=== PATIENT | male | born 1935 | race Caucasian/White ===

== ENCOUNTER 2020-09-07 14:52 | Inpatient (IN) | payer OTHER, SELFPAY ==
[2020-09-07] VITALS (40 sets, daily range): BP systolic 91–110; BP diastolic 41–82; PULSE 71–119; RESP 14–34; TEMP 36.6–36.8; O2SAT 80–100
--- NOTE | 2020-09-07 14:45 | RT.EKG_ITS ---
APPROVED REPORT Exam: Resting ECG Patient Location: E HR:80 bpm ECG Measurements Heart Rate 80 AXIS VA [id number] P [id number] QRSd 162 QRS -76 QT 487 T 92 QTc 567 Conclusion Afib/flut and V-paced complexes...other complexes, A-rate>240 I have reviewed and interpreted ECG and agree with software generated interpretation.
--- NOTE | 2020-09-07 15:03 | ED.GENADUL_ITS ---
Discharge Plan Disposition Patient Disposition: [facility] INPATIENT Condition: Stable Discharge Details Clinical Impression: Pneumonia, Hypotension, Dehydration, Acute CHF, Acute kidney injury superimpos ed on chronic kidney disease, Altered mental status Admit Date/Time: 09/07/20 18:26 Admit Provider: Bimal Sheriff Attending Provider: Bimal Sheriff Primary Care Provider: Ronaldo Melgar ED Provider: Beti Tiwari Discharge Data Discharge Date/Time-TO BE ENTERED AT DEPARTURE: 09/07/20 19:55 Medical Decision Making 1520 -- 84-year-old male with a history of AAA, CHF, CKD, CVA, diabetes, hypertension, hyperlipidemia, paroxysmal atrial fibrillation on Coumadin presents for confusion, hypoxia, hypotension and [facility] Patient awake and alert and oriented x3 on arrival. Blood pressure 94/68. Oxygen saturation 100% on room air. Patient mainly is demanding food. He has diminished breath sounds throughout. He has a stage II sacral ulcer without evidence of cellulitis. He is moving all extremities without focal deficits. Differential diagnosis includes acute CVA, ACS, pneumonia, UTI, electrolyte abnormality, arrhythmia. Will place an IV, check screening labs, urinalysis, CT head and chest and reassess. 173 -- Labs and imaging reviewed. White blood cell count normal. Hemoglobin 9.5. Lactate 2. INR 2.5. Creatinine 2.99. BNP 13710. Urinalysis negative. CT head and cervical spine negative. CT chest notes questionable patchy groundglass opacities of the lungs, edema, inflammation or infection not excluded. Pelvis x-ray negative. Case discussed with patient's daughter over the phone who states that she would prefer if patient be transferred [facility] the [facility] if needed for admission. Case discussed with the [facility] - patient's creatinine was 2.51 and hemoglobin was 9 last week. They will call back once confirming their bed availability. 190 -- Case discussed again with the [facility] and there is no bed availability. States that patient could be transferred to the [facility] tomorrow if bed becomes available. Considering patient's age and history with report of altered mental status and questionable pneumonia, will admit for observation and IV antibiotics. Discussed with patient's daughter over the phone and she is agreeable with plan. Case discussed with hospitalist who accepts patient for admission. Medical Records Medical records reviewed: Yes I reviewed the patient's medical records. Imaging Data Radiologic Study: Radiologist's impression: XR Pelvis Exam date and time: 09/07/2020 4:42 PM Age: 84 years old Clinical indication: Other: S/P possible fall, R/O acute fracture TECHNIQUE: Imaging protocol: XR pelvis. Views: 1 or 2 view. COMPARISON: No relevant prior studies available. FINDINGS: Bones/joints: The area of the pubic symphysis is obscured by oral contrast in the rectum. Degenerative changes in the lower lumbar spine. No definite fracture or dislocation. Soft tissues: Unremarkable. Gastrointestinal tract: Oral contrast in the colon. IMPRESSION: No definite fracture or dislocation. CT Chest Without Contrast Exam date and time: 09/07/2020 4:28 PM Age: 84 years old Clinical indication: Other: Shortness of breath, hypoxia, R/O chf/pneumonia TECHNIQUE: Imaging protocol: Computed tomography of the chest without contrast. COMPARISON: No relevant prior studies available. FINDINGS: Tubes, catheters and devices: Pacemaker leads in the right heart. Lungs: Patchy ground-glass mottled appearance of the lungs that is subtle. Mild edema or inflammation or infection is not excluded. Pleural space: Small right pleural effusion. Heart: Cardiomegaly. Aorta: Unremarkable. No aortic aneurysm. Lymph nodes: Unremarkable. No enlarged lymph nodes. Intraperitoneal space: Mild perisplenic ascites. Bones/joints: Sternotomy. Degenerative changes in the spine. Old right 11th rib fracture, healed. Soft tissues: Unremarkable. Other findings: Mild atherosclerosis. IMPRESSION: Cardiomegaly. Pacemaker leads in the right heart. Mild atherosclerosis. Mild perisplenic ascites. Small right pleural effusion. Patchy ground-glass mottled appearance of the lungs that is subtle. Mild edema or inflammation or infection is not excluded. CT Head Without Contrast Exam date and time: 09/07/2020 4:16 PM Age: 84 years old Clinical indication: Other: S/P fall, R/O acute intracraninal injury TECHNIQUE: Imaging protocol: Computed tomography of the head without contrast. COMPARISON: No relevant prior studies available. FINDINGS: Brain: There is ventricular, cortical sulcal prominence consistent with central, cortical atrophy. Remote ischemic changes seen posteriorly in both cerebral hemispheres , on the right involving the posterior right temporal lobe at the temporal occipital junction and on the left involving the left occipital lobe/left temporal occipital junction as well. There is low attenuation involving the periventricular, subcortical white matter likely representing small vessel ischemic change/microangiopathy. Remote left cerebellar infarcts are also identified. There is no evidence of acute hemorrhage, mass or shift. There is no definite acute cortical or major vascular territory infarct the identified. Cerebral ventricles: Ventricular prominence likely is related to central atrophy.. Bones/joints: There is no acute bony abnormality Paranasal sinuses: There is sinus mucoperiosteal thickening particularly involving the left ethmoid air cells, frontal sinuses at the frontoethmoidal recesses. There is no significant sinus opacification, fluid level nor intra sinus hemorrhage Mastoid air cells: There is no significant mastoid or middle ear opacification Orbital cavity: Patient has had prior lens replacement. No significant intraorbital abnormality is identified Vasculature: There is intracranial vascular calcification but no hyperdense thrombus Soft tissues: Unremarkable. IMPRESSION: Findings consistent with central, cortical atrophy. Remote ischemic changes are seen in both cerebral hemispheres, left cerebellum but no acute findings are identified. CT Cervical Spine Without Contrast Exam date and time: 09/07/2020 4:16 PM Age: 84 years old Clinical indication: Other: S/P fall, R/O acute intracraninal injury TECHNIQUE: Imaging protocol: Computed tomography images of the cervical spine without contrast. COMPARISON: No relevant prior studies available. FINDINGS: Bones/joints: There is straightening, reversal of the cervical lordosis which may be positional or due to spasm. There is no evidence of an acute fracture in the cervical spine. There is no decrease of vertebral body height. There is no acute or destructive bony abnormality Discs/Spinal canal/Neural foramina: There is multilevel disc space narrowing in the cervical spine. This is present at multiple levels but appears most prominent at C6-C7. There are disc osteophyte complexes, spondylitic changes of the endplates, uncovertebral and facet arthropathy. There is narrowing of the canal/stenosis at the level of the disc spaces most prominent at C6-C7. Degenerative changes also lead to foraminal narrowing/stenosis also most prominent at C6-C7. Degenerative changes are also seen at the C1-C2 articulation. Soft tissues: There is no evidence of a discrete soft tissue mass in the neck Lungs: No significant abnormality is identified at the visualized lung apices Other findings: The the the the the examination is mildly degraded by motion. IMPRESSION: Cervical spondylosis, disc disease. No evidence of an acute fracture in the cervical spine. ECG Data Attestation: I personally reviewed and interpreted this ECG (s) as follows: Interpretation: Rate of 80, atrial paced. No acute ST findings. KS 214. QRS 162. QTc 567. HPI General Mode of arrival: EMS . Date/Time Provider Initiated Documentation: 09/07/20 15:00 . Limitations to Documentation: altered mental status and physical limitation . Information obtained by: patient, RN/MD and EMS . HPI Narrative: Patient is an 84-year-old male with a history of AAA, CHF, CKD, CVA, diabetes, hypertension, hyperlipidemia, paroxysmal atrial fibrillation on Coumadin [facility] for hypoxia into the 80s on room air, questionable fluid in lungs, and confusion today. Per [facility], patient has been there for the past 2 days after discharge [facility] for acute CHF exacerbation. Case discussed with patient's daughter over the phone who states that patient developed shortness of breath and was found to have acute CHF [facility] [place]. She states he has not chronically on oxygen at home. Related Data Home Medications Medication Instructions Recorded Confirmed acetaminophen 325 mg PO TID PRN 09/07/20 09/07/20 aspirin 81 mg PO DAILY 09/07/20 09/07/20 benzonatate 100 mg PO BID PRN 09/07/20 09/07/20 bisacodyl [Dulcolax (bisacodyl)] 10 mg KS DAILY PRN 09/07/20 09/07/20 bumetanide 2 mg PO BID 09/07/20 09/07/20 diclofenac sodium [Diclo Gel] 4 g TOPICAL QID PRN 09/07/20 09/07/20 docusate sodium [Colace] 100 mg PO DAILY 09/07/20 09/07/20 febuxostat 80 mg PO DAILY 09/07/20 09/07/20 gabapentin 300 mg PO DAILY 09/07/20 09/07/20 lactase 3,000 unit PO TID 09/07/20 09/07/20 metoprolol tartrate 50 mg PO DAILY 09/07/20 09/07/20 omega-3 fatty acids-vitamin E 1 cap PO BID 09/07/20 09/07/20 [Fish Oil] omeprazole 20 mg PO DAILY 09/07/20 09/07/20 pravastatin 20 mg PO QHS 09/07/20 09/07/20 tamsulosin 0.8 mg PO QHS 09/07/20 09/07/20 trazodone 50 mg PO QHS 09/07/20 09/07/20 warfarin [Coumadin] 1 mg PO DIRECTED 09/07/20 09/07/20 warfarin [Coumadin] 2 mg PO DIRECTED 09/07/20 09/07/20 Allergies Allergy/AdvReac Type Severity Reaction Status Date / Time allopurinol Allergy Unverified 09/07/20 15:31 lisinopril Allergy Unverified 09/07/20 15:31 Review of Systems All systems reviewed & are unremarkable except as noted in HPI and below Constitutional Constitutional: Reports as per HPI, Denies chills and Denies fever(s) Eyes Eyes: Denies blurry vision ENT Ears, Nose, Mouth, and Throat: Denies dizziness, Denies sore throat and Denies t hroat swelling Cardiovascular Cardiovascular: Denies chest pain and Denies dyspnea Respiratory Respiratory: Denies cough and Denies dyspnea Gastrointestinal Gastrointestinal: Denies abdominal pain, Denies diarrhea and Denies vomiting Genitourinary Genitourinary: Denies hematuria and Denies dysuria Musculoskeletal Musculoskeletal: Denies back pain and Denies numbness Integumentary/Breasts Skin/Breast: Denies lesions and Denies rash Neurologic Neurologic: Denies dizziness, Denies localized weakness and Denies numbness Allergic/Immunologic Allergic/Immunologic: Denies throat swelling [facility] Medical History (Updated 09/08/20 @ 05:38 by Bimal Sheriff MD) AAA (abdominal aortic aneurysm) without rupture CHF (congestive heart failure) Chronic kidney disease CVA (cerebral vascular accident) Diabetes Dysphagia Gout HTN (hypertension) Hx of hyperlipidemia Paroxysmal atrial fibrillation Peripheral neuropathy Social History Smoking/Tobacco Use Status: Unknown Smoking risk assessment performed?: Yes Details: Unable to assess patient confused, current resident of [facility]. Additional Social history: Unable to assess patient confused, current resident of [facility]. Exam Const General: cooperative and other (cooperative but frequently asking for food) Orientation: alert, awake and oriented x3 HENMT Head: normal to inspection Face and sinus: normal facial exam Eyes General: appearance normal, both eyes and all related structures Pupils: PERRL EOM: EOM intact bilaterally Neck Neck: normal visual inspection and No submandibular swelling Lymphatic: no lymphadenopathy noted Chest Chest: normal inspection of the chest and no tenderness Resp Effort & Inspection: normal respiratory effort and able to speak in complete sentences Auscultation: diminished lung sounds bilaterally throughout Cardio Rate: regular rate Rhythm: regular rhythm GI Inspection: normal to inspection Palpation: soft, not firm, not rigid and nontender Auscultation: normal bowel sounds Back/Spine/Pelvis Thoracic/Lumbar Spine: thoracic and lumbar spine normal to inspection Back/spine/pelvis image: 1. 1x1cm stage II Skin General skin exam: no rashes or lesions noted Neuro General: patient alert, patient awake and patient oriented x3 Cognition: normal cognition Speech: speech normal Motor: muscle tone normal throughout Sensory Exam: no sensory deficits noted Extrem General: normal to inspection, full ROM, capillary refill normal, no calf tenderness bilaterally and edema Laterality: bilateral (1+ pitting) Psych Appearance: grossly normal Mental Status: mental status grossly normal Speech and Movement: speech and movement normal Affect: normal affect
[2020-09-07 15:37] LABS: Abs Immature Grans 0.03 10^3/uL (0.0-0.06); Absolute Basophil Count 0.02 10^3/uL (0.0-0.2); Absolute Eosinophil Count 0.01 10^3/uL (0.0-0.7); Absolute Lymphocyte Count 0.72 10^3/uL (1.2-3.4); Absolute Monocyte Count 0.69 10^3/uL (0.1-0.8); Absolute Neutrophil Count 4.08 10^3/uL (1.2-6.7); Basophils % 0.4; Eosinophils % 0.2; HCT 32.5 % (40.0-50.0); HGB 9.5 g/dL (13.5-17.5); Immature Grans % 0.5; MCH 27.4 pg (27.0-33.0); MCHC 29.2 % (32.0-36.0); MCV 93.7 fL (80-95); MPV 11.3 fL (8.0-11.0); Monocytes % 12.4; Neutrophils % 73.5; Nucleated RBC 0 %; Platelet Count 119 10^3/uL (130-400); RBC 3.47 10^6/uL (4.36-5.78); RDW 20.3 % (11.8-14.1); RDW-SD 69.1 fL; WBC 5.55 10^3/uL (4.4-10.8)
[2020-09-07 15:45] LABS: Bilirubin Negative (Negative); Blood Negative (Negative); Clarity Clear (Clear); Glucose Negative (Negative); Ketones Negative (Negative); Leukocyte Esterase Negative (Negative); Nitrite Negative (Negative)
[2020-09-07 15:51] LABS: INR 2.5 (0.9-1.1); PTT Activated 38.4 sec (21.0-27.5)
[2020-09-07 15:52] LABS: Prothrombin Time 24.7 sec (9.3-11.0)
[2020-09-07 15:55] LABS: Anisocytosis 2+; Diff Comment RBC Morph Reviewed
[2020-09-07 15:56] LABS: ALT 17 U/L (16-63); AST 32 U/L (15-37); Albumin 3.2 g/dL (3.4-5.0); Alkaline Phosphatase 85 U/L (46-116); Anion Gap 4.2 mmol/L (3-11); BUN 64 mg/dL (7-18); CO2 38.8 mmol/L (21.0-32.0); CREATININE 2.99 mg/dL (0.70-1.30); Calcium 8.9 mg/dL (8.5-10.1); Chloride 101 mmol/L (98-107); Estimated GFR 20.21 (mL/min/1.73m2); Glucose 114 mg/dL (74-106); Magnesium 2.1 mg/dL (1.8-2.4); Sodium 144 mmol/L (136-145); Total Protein 7.6 g/dL (6.4-8.2); Troponin I 0.05 ng/mL (<0.06)
[2020-09-07 15:58] LABS: Bilirubin, Total 1.8 mg/dL (0.2-1.0)
[2020-09-07 16:00] LABS: NT-proBNP 18968 pg/mL (<300)
--- NOTE | 2020-09-07 16:00 | DI.CT_ITS ---
EXAM: CT HEAD CERVICAL SPINE WO COMPARISON: No exams were available for comparison FINDINGS: CT examination of the cervical spine was performed without contrast administration. There is no evidence of acute cervical spine fracture or dislocation. There are marked degenerative changes of the cervical spine with prominent hypertrophic changes of th e facet joints and endplates, there is disc space narrowing particularly at C6-7. Tracheolaryngeal structures appear intact. No cervical mass or adenopathy. Noncontrast cranial CT was performed. There is marked generalized cerebral atrophy. There are patchy areas of decreased attenuation in per iventricular white matter consistent with microvascular ischemic changes. There are apparent old inf arcts of left cerebellar hemisphere and right and left occipital lobes. No evidence of acute intracranial hemorrhage, mass effect, or midline shift. No calvarial fracture. The orbital and temporal bone structures appear intact. IMPRESSION: No evidence of acute cervical spine injury. No evidence of acute intracranial injury. RADIATION DOSE DELIVERED: 1,512.1mGy.cm Total DLP 1,512.1mGy.cm Total DLP DATA REPOSITORY: All CT scans at this facility are submitted to the National Radiology Data Registry (NRDR) Dose Index Registry (DIR) with the [employer] ([employer]). RADIATION OPTIMIZATION: All CT scans at this facility use at least one of these dose optimization te chniques: automated exposure control; mA and/or kV adjustment per patient size (includes targeted exa ms where dose is matched to clinical indication); or iterative reconstruction.
--- NOTE | 2020-09-07 16:00 | DI.CT_ITS ---
EXAM: CT CHEST WO CLINICAL HISTORY: shortness of breath, hypoxia, r/o chf/pneumonia TECHNIQUE: COMPARISON: No exams were available for comparison FINDINGS: CT examination of the chest was performed without contrast administration. Images obtained through the upper abdomen show minimal fluid attenuation adjacent to the spleen which is nonspecific. Visualized liver appears intact. The heart is enlarged. There is a transvenous cardiac pacemaker. There is an aortic valve prosthesi s. No gross mediastinal or hilar adenopathy. There is a small right pleural effusion. Motion obscures pulmonary detail to some degree. There is a question of faint bilateral perihilar in filtrates, ground-glass, possible mild CHF, infectious process not excluded. There is a 5 millimeter in diameter right middle lobe pulmonary nodule, follow-up chest CT recommende d in 6 months. IMPRESSION: Cardiomegaly, question mild CHF, mild ground-glass infectious process not excluded. CT follow-up recommended for right middle lobe 5 millimeter pulmonary nodule. RADIATION DOSE DELIVERED: 646.31mGy.cm Total DLP
--- NOTE | 2020-09-07 16:11 | DI.RAD_ITS ---
EXAM: XR PELVIS AP CLINICAL HISTORY: s/p possible fall, r/o acute fracture TECHNIQUE: COMPARISON: No exams were available for comparison FINDINGS: Two views were obtained. A portions of the pelvis are obscured by barium in the colon. The radiogra phic technique does not adequately demonstrate the proximal femurs. No definite fracture seen. IMPRESSION: No definite fracture identified but the films are suboptimal for evaluating for fracture. If there is a high clinical suspicion of fracture additional radiographs or CT would be recommended. RADIATION DOSE DELIVERED: Total DLP
--- NOTE | 2020-09-07 16:57 | DI.VRAD_ITS ---
PROCEDURE INFORMATION: Exam: XR Pelvis Exam date and time: 09/07/2020 4:42 PM Age: 84 years old Clinical indication: Other: S/P possible fall, R/O acute fracture TECHNIQUE: Imaging protocol: XR pelvis. Views: 1 or 2 view. COMPARISON: No relevant prior studies available. FINDINGS: Bones/joints: The area of the pubic symphysis is obscured by oral contrast in the rectum. Degenerative changes in the lower lumbar spine. No definite fracture or dislocation. Soft tissues: Unremarkable. Gastrointestinal tract: Oral contrast in the colon. IMPRESSION: No definite fracture or dislocation. Dictated and Authenticated by: Cong Giraldo MD. Ordering:MARY Bang MD
--- NOTE | 2020-09-07 17:03 | DI.VRAD_ITS ---
PROCEDURE INFORMATION: Exam: CT Chest Without Contrast Exam date and time: 09/07/2020 4:28 PM Age: 84 years old Clinical indication: Other: Shortness of breath, hypoxia, R/O chf/pneumonia TECHNIQUE: Imaging protocol: Computed tomography of the chest without contrast. COMPARISON: No relevant prior studies available. FINDINGS: Tubes, catheters and devices: Pacemaker leads in the right heart. Lungs: Patchy ground-glass mottled appearance of the lungs that is subtle. Mild edema or inflammation or infection is not excluded. Pleural space: Small right pleural effusion. Heart: Cardiomegaly. Aorta: Unremarkable. No aortic aneurysm. Lymph nodes: Unremarkable. No enlarged lymph nodes. Intraperitoneal space: Mild perisplenic ascites. Bones/joints: Sternotomy. Degenerative changes in the spine. Old right 11th rib fracture, healed. Soft tissues: Unremarkable. Other findings: Mild atherosclerosis. IMPRESSION: Cardiomegaly. Pacemaker leads in the right heart. Mild atherosclerosis. Mild perisplenic ascites. Small right pleural effusion. Patchy ground-glass mottled appearance of the lungs that is subtle. Mild edema or inflammation or infection is not excluded. Dictated and Authenticated by: Cong Giraldo MD. Ordering:MARY Bang MD
--- NOTE | 2020-09-07 17:05 | DI.VRAD_ITS ---
PROCEDURE INFORMATION: Exam: CT Head Without Contrast Exam date and time: 09/07/2020 4:16 PM Age: 84 years old Clinical indication: Other: S/P fall, R/O acute intracraninal injury TECHNIQUE: Imaging protocol: Computed tomography of the head without contrast. COMPARISON: No relevant prior studies available. FINDINGS: Brain: There is ventricular, cortical sulcal prominence consistent with central, cortical atrophy. Remote ischemic changes seen posteriorly in both cerebral hemispheres , on the right involving the posterior right temporal lobe at the temporal occipital junction and on the left involving the left occipital lobe/left temporal occipital junction as well. There is low attenuation involving the periventricular, subcortical white matter likely representing small vessel ischemic change/microangiopathy. Remote left cerebellar infarcts are also identified. There is no evidence of acute hemorrhage, mass or shift. There is no definite acute cortical or major vascular territory infarct the identified. Cerebral ventricles: Ventricular prominence likely is related to central atrophy.. Bones/joints: There is no acute bony abnormality Paranasal sinuses: There is sinus mucoperiosteal thickening particularly involving the left ethmoid air cells, frontal sinuses at the frontoethmoidal recesses. There is no significant sinus opacification, fluid level nor intra sinus hemorrhage Mastoid air cells: There is no significant mastoid or middle ear opacification Orbital cavity: Patient has had prior lens replacement. No significant intraorbital abnormality is identified Vasculature: There is intracranial vascular calcification but no hyperdense thrombus Soft tissues: Unremarkable. IMPRESSION: Findings consistent with central, cortical atrophy. Remote ischemic changes are seen in both cerebral hemispheres, left cerebellum but no acute findings are identified. PROCEDURE INFORMATION: Exam: CT Cervical Spine Without Contrast Exam date and time: 09/07/2020 4:16 PM Age: 84 years old Clinical indication: Other: S/P fall, R/O acute intracraninal injury TECHNIQUE: Imaging protocol: Computed tomography images of the cervical spine without contrast. COMPARISON: No relevant prior studies available. FINDINGS: Bones/joints: There is straightening, reversal of the cervical lordosis which may be positional or due to spasm. There is no evidence of an acute fracture in the cervical spine. There is no decrease of vertebral body height. There is no acute or destructive bony abnormality Discs/Spinal canal/Neural foramina: There is multilevel disc space narrowing in the cervical spine. This is present at multiple levels but appears most prominent at C6-C7. There are disc osteophyte complexes, spondylitic changes of the endplates, uncovertebral and facet arthropathy. There is narrowing of the canal/stenosis at the level of the disc spaces most prominent at C6-C7. Degenerative changes also lead to foraminal narrowing/stenosis also most prominent at C6-C7. Degenerative changes are also seen at the C1-C2 articulation. Soft tissues: There is no evidence of a discrete soft tissue mass in the neck Lungs: No significant abnormality is identified at the visualized lung apices Other findings: The the the the the examination is mildly degraded by motion. IMPRESSION: Cervical spondylosis, disc disease. No evidence of an acute fracture in the cervical spine. Dictated and Authenticated by: Kavita Marquez MD. Ordering:MARY Bang MD
[2020-09-07] MEDS: Normal Saline 500 ML IV (19:24)
[2020-09-07] MEDS: PIPERACILLIN/TAZO 3.375 GM in Normal Saline 50 ML IVPB (19:28)
[2020-09-07 20:33] LABS: Procalcitonin 0.2 ng/mL
[2020-09-07] MEDS: Pravastatin 20 MG TAB PO (23:16)
[2020-09-07] MEDS: Normal Saline Flush 10 ML SYR IVP (23:16)
[2020-09-07] MEDS: traZODone 50 MG TAB PO (23:16)
[2020-09-07] MEDS: Tamsulosin 0.4 MG CAPCR 0.8 MG PO (23:16)
[2020-09-07] MEDS: VANCOMYCIN 1,250 MG in Normal Saline 250 ML 166.667 MG IVPB (23:17)
[2020-09-08] MEDS: PIPERACILLIN/TAZO 3.375 GM in Normal Saline 50 ML IVPB ×2 (01:44→15:17)
[2020-09-08 02:03] VITALS: BP 106/73; PULSE 80; RESP 17; TEMP 36.8; O2SAT 99
--- NOTE | 2020-09-08 05:26 | HPE_ITS ---
Date of service: 09/08/20 Time of Service: 05:26 Assessment and Plan Assessment and plan (1) Altered mental status: Status: Acute Assessment and plan: Appeared to have resolved upon presentation to ED Likely related to transient hypoxia. CT head w/o acute findings to explain any confusion Monitor Qualifiers: Altered mental status type: transient alteration of awareness Qualified Code(s): R40.4 - Transient alteration of awareness (2) Acute kidney injury superimposed on chronic kidney disease: Status: Acute Assessment and plan: Cr elevated above his baseline. Given his acute on chronic CHF, consider lasix drip. Avoid nephrotoxic agents. Monitor (3) Acute CHF: Status: Acute Assessment and plan: No hypoxia since admission. CT chest with ground glass opacities; edema. Questionably infectious, however WBC count and procal are both normal. Stopped antibiotics. + pitting pedal edema Recently [facility]'d [facility]. Consider lasix drip. Low Na diet. Fluid restriction of 1500 ml; watching renal function closely. Qualifiers: Heart failure type: systolic Qualified Code(s): I50.21 - Acute systolic (congestive) heart failure (4) Hypotension: Status: Acute Assessment and plan: SBP in the 90's to low 100's Unknown baseline BP; this may be his normal. He was administered 500ml IV NS in the ED. Stable (5) Hypoxemia: Status: Acute Assessment and plan: No dxd underlying pulmonary disease. No chronic resp failure. Now on 1L O2 per NC with saturation of 99%. (6) Diabetes mellitus type 2, controlled: Status: Acute Assessment and plan: Random glucose on admission 114. No currently on any diabetic meds. Diet controlled. Diabetic diet. History of Present Illness History of Present Illness Chief Complaint: Hypoxia and confusion Narrative: This is an 84 yo male that [facility]. He had been transferred there 2 days prior to this admission after being discharged from the [facility] for [facility] exacerbation. He has a h/o DM2, HTN, CKD, PAF on coumadin, CHF, CVA, AAA, pacemaker. He was noted at the facility to have a RA oxygen saturation in the 80's and was noted to be confused. His daughter was contacted by the ED staff and she endorsed that he had developed SOA[facility]. He is not chronically hypoxic on supplemental O2. No CP, palpitations, F/C/cough reported. In the ED his RA oxygen saturation was 100%. [place] [address]. WBC count normal. Lactate mildly elevated at 2.0. Creatinine 2.99 / reportedly 2.5 during recent hospitalization. Hgb 9.5 reportedly in the low 9's during recent hospitalization. CT head and C-spine negative. CT chest with questionable patchy ground glass opacities of both lungs; edema vs infectious process. He was given a dose of Zosyn and Vancomycin. Procalcitonin was still pending upon admission. Given his acute on chronic MARY, modest fluids given. Review of Systems All systems reviewed & are unremarkable except as noted in HPI and below [facility] Medical History (Updated 09/08/20 @ 05:38 by Bimla Sheriff MD) AAA (abdominal aortic aneurysm) without rupture CHF (congestive heart failure) Chronic kidney disease CVA (cerebral vascular accident) Diabetes Dysphagia Gout HTN (hypertension) Hx of hyperlipidemia Paroxysmal atrial fibrillation Peripheral neuropathy Social History Smoking/Tobacco Use Status: Unknown Smoking risk assessment performed?: Yes Details: Unable to assess patient confused, current resident of [facility]. Additional Social history: Unable to assess patient confused, current resident of [facility]. Meds Home Medications and Allergies Home Medications Medication Instructions Recorded Confirmed Type acetaminophen 325 mg PO TID PRN 09/07/20 09/07/20 History aspirin 81 mg PO DAILY 09/07/20 09/07/20 History benzonatate 100 mg PO BID PRN 09/07/20 09/07/20 History bisacodyl [Dulcolax (bisacodyl)] 10 mg GA DAILY PRN 09/07/20 09/07/20 History bumetanide 2 mg PO BID 09/07/20 09/07/20 History diclofenac sodium [Diclo Gel] 4 g TOPICAL QID PRN 09/07/20 09/07/20 History docusate sodium [Colace] 100 mg PO DAILY 09/07/20 09/07/20 History febuxostat 80 mg PO DAILY 09/07/20 09/07/20 History gabapentin 300 mg PO DAILY 09/07/20 09/07/20 History lactase 3,000 unit PO TID 09/07/20 09/07/20 History metoprolol tartrate 50 mg PO DAILY 09/07/20 09/07/20 History omega-3 fatty acids-vitamin E 1 cap PO BID 09/07/20 09/07/20 History [Fish Oil] omeprazole 20 mg PO DAILY 09/07/20 09/07/20 History pravastatin 20 mg PO QHS 09/07/20 09/07/20 History tamsulosin 0.8 mg PO QHS 09/07/20 09/07/20 History trazodone 50 mg PO QHS 09/07/20 09/07/20 History warfarin [Coumadin] 1 mg PO DIRECTED 09/07/20 09/07/20 History warfarin [Coumadin] 2 mg PO DIRECTED 09/07/20 09/07/20 History Allergies Allergy/AdvReac Type Severity Reaction Status Date / Time allopurinol Allergy Unverified 09/07/20 15:31 lisinopril Allergy Unverified 09/07/20 15:31 Exam Const General: cooperative and no acute distress Nutritional Appearance: overweight Orientation: alert and oriented to person HENLA Head: normal to inspection and atraumatic Eyes Sclera: sclerae normal Pupils: PERRL Resp Effort & Inspection: normal respiratory effort Auscultation: clear to auscultation bilaterally Cardio Rate: regular rate Rhythm: regular rhythm Heart Sounds: S1 normal and S2 normal Results Labs Result diagrams: 09/07/20 15:02 09/07/20 15:03 Labs: Laboratory Results - last 24 hr 09/07/20 09/07/20 09/07/20 15:01 15:02 15:03 WBC 5.55 RBC 3.47 L Hgb 9.5 L Hct 32.5 L MCV 93.7 MCH 27.4 MCHC 29.2 L RDW 20.3 H Plt Count 119 L MPV 11.3 H Immature Gran % 0.5 Neutrophils % 73.5 Lymphocytes % 13.0 Monocytes % 12.4 Eosinophils % 0.2 Basophils % 0.4 Nucleated RBC % 0 Absolute Neutrophils 4.08 Absolute Lymphocytes 0.72 L Absolute Monocytes 0.69 Absolute Eosinophils 0.01 Absolute Basophils 0.02 RBC Morphology See below Anisocytosis 2+ PT 24.7 H INR 2.5 H APTT 38.4 H VBG Lactate 2.0 H Sodium Potassium Chloride Carbon Dioxide Anion Gap BUN Creatinine Estimated GFR/1.73 m2 Glucose Calcium Magnesium Total Bilirubin AST ALT Alkaline Phosphatase Troponin I NT-Pro-B Natriuret Pep Total Protein Albumin Procalcitonin Urine Color Urine Clarity Urine pH Ur Specific [place] Urine Protein Urine Ketones Urine Blood Urine Nitrite Urine Bilirubin Urine Urobilinogen Ur Leukocyte Esterase Urine Glucose COVID-19 [facility] COVID-[facility] PCR Ref Test Perform Site 09/07/20 09/07/20 09/07/20 15:03 15:03 15:03 WBC RBC Hgb Hct MCV MCH MCHC RDW Plt Count MPV Immature Gran % Neutrophils % Lymphocytes % Monocytes % Eosinophils % Basophils % Nucleated RBC % Absolute Neutrophils Absolute Lymphocytes Absolute Monocytes Absolute Eosinophils Absolute Basophils RBC Morphology Anisocytosis PT INR APTT VBG Lactate Sodium 144 Potassium 4.0 Chloride 101 Carbon Dioxide 38.8 H Anion Gap 4.2 BUN 64 H Creatinine 2.99 H Estimated GFR/1.73 m2 20.21 Glucose 114 H Calcium 8.9 Magnesium 2.1 Total Bilirubin 1.8 H AST 32 ALT 17 Alkaline Phosphatase 85 Troponin I 0.05 NT-Pro-B Natriuret Pep 50191 H Total Protein 7.6 Albumin 3.2 L Procalcitonin 0.2 Urine Color Urine Clarity Urine pH Ur Specific [place] Urine Protein Urine Ketones Urine Blood Urine Nitrite Urine Bilirubin Urine Urobilinogen Ur Leukocyte Esterase Urine Glucose COVID-19 PCR [facility] COVID-19 PCR Ref Test Perform Site 09/07/20 09/07/20 09/07/20 15:08 15:22 19:37 WBC RBC Hgb Hct MCV MCH MCHC RDW Plt Count MPV Immature Gran % Neutrophils % Lymphocytes % Monocytes % Eosinophils % Basophils % Nucleated RBC % Absolute Neutrophils Absolute Lymphocytes Absolute Monocytes Absolute Eosinophils Absolute Basophils RBC Morphology Anisocytosis PT INR APTT VBG Lactate Sodium Potassium Chloride Carbon Dioxide Anion Gap BUN Creatinine Estimated GFR/1.73 m2 Glucose Calcium Magnesium Total Bilirubin AST ALT Alkaline Phosphatase Troponin I NT-Pro-B Natriuret Pep Total Protein Albumin Procalcitonin Urine Color Yellow Urine Clarity Clear Urine pH 7.0 Ur Specific [place] 1.020 Urine Protein Negative Urine Ketones Negative Urine Blood Negative Urine Nitrite Negative Urine Bilirubin Negative Urine Urobilinogen 1.0 H Ur Leukocyte Esterase Negative Urine Glucose Negative COVID-19 PCR Cancelled Cancelled [facility] COVID-19 PCR Cancelled Cancelled Ref Test Perform Site Cancelled Cancelled Last Vital Signs Temp 36.8 C 09/08/20 02:03 Pulse 80 09/08/20 02:03 Resp 17 09/08/20 02:03 BP 106/73 09/08/20 02:03 Pulse Ox 99 09/08/20 02:03
[2020-09-08 07:38] LABS: Lactate 2.5 mmol/L (0.6-1.4)
[2020-09-08 07:41] LABS: Abs Immature Grans 0.04 10^3/uL (0.0-0.06); Absolute Basophil Count 0.02 10^3/uL (0.0-0.2); Absolute Eosinophil Count 0.01 10^3/uL (0.0-0.7); Absolute Lymphocyte Count 0.36 10^3/uL (1.2-3.4); Absolute Monocyte Count 0.75 10^3/uL (0.1-0.8); Absolute Neutrophil Count 6.22 10^3/uL (1.2-6.7); Basophils % 0.3; Eosinophils % 0.1; HCT 34.1 % (40.0-50.0); HGB 9.8 g/dL (13.5-17.5); Immature Grans % 0.5; Lymphocytes % 4.9; MCH 26.8 pg (27.0-33.0); MCHC 28.7 % (32.0-36.0); MCV 93.2 fL (80-95); MPV 11.4 fL (8.0-11.0); Monocytes % 10.1; Neutrophils % 84.1; Nucleated RBC 0 %; RBC 3.66 10^6/uL (4.36-5.78); RDW 20.1 % (11.8-14.1); RDW-SD 68.4 fL
[2020-09-08 07:47] LABS: Prothrombin Time 23.1 sec (9.3-11.0)
[2020-09-08 08:03] LABS: INR 2.3 (0.9-1.1)
[2020-09-08 08:05] LABS: Anion Gap 5.2 mmol/L (3-11); BUN 64 mg/dL (7-18); CO2 33.8 mmol/L (21.0-32.0); CREATININE 2.81 mg/dL (0.70-1.30); Calcium 8.9 mg/dL (8.5-10.1); Chloride 100 mmol/L (98-107); Estimated GFR 21.71 (mL/min/1.73m2); Glucose 135 mg/dL (74-106); Potassium 4.3 mmol/L (3.5-5.1); Sodium 139 mmol/L (136-145)
[2020-09-08 08:12] LABS: Platelet Count 99 10^3/uL (130-400)
[2020-09-08 08:13] LABS: Anisocytosis 2+; Diff Comment RBC Morph Reviewed; Polychromasia Present
--- NOTE | 2020-09-08 09:29 | PT.INNT ---
Date of service: 09/08/20 Time of Service: 09:30 PT Notes Visit Reasons: PNEUMONIA,ACUTE CHF,DEHYDRATION,MARY ON CKD, AMS Patient COVID test pending and this provider not fitted for proper mask in order to treat patient. Will be evaluated tomorrow.
[2020-09-08] MEDS: Metoprolol 50 MG TAB PO (09:38)
[2020-09-08] MEDS: Omega-3 Fatty Acids 1000 MG CAP PO (09:38)
[2020-09-08] MEDS: Bumetanide 1 MG TAB 2 MG PO (09:38)
[2020-09-08] MEDS: Omeprazole 20 MG CAPCR PO (09:39)
[2020-09-08] MEDS: Aspirin 81 MG CHEW PO (09:39)
[2020-09-08] MEDS: Gabapentin 300 MG CAP PO (09:39)
[2020-09-08] MEDS: Docusate Sodium 100 MG CAP PO (09:39)
[2020-09-08 09:50] VITALS: BP 110/74; PULSE 60; RESP 18; TEMP 37.1; O2SAT 95
[2020-09-08] MEDS: Furosemide 100 MG/10 ML VIAL 80 MG IVP (09:57)
--- NOTE | 2020-09-08 10:39 | INITIAL_ITS ---
- If Service Date Differs Date of service: 09/08/20 Time of Service: 13:56 Care Management Initial Assess REASON FOR HOSPITALIZATION:: Pneumonia, Acute CHF, Dehydration, MARY on CKD, AMS PAST MEDICAL HISTORY/PAST SURGICAL HISTORY:: This is an 84 yo male that presented from the [facility] nursing facility. He had been transferred there 2 days prior to this admission after being [facility] from [facility] for [facility]. He has a h/o DM2, HTN, CKD, PAF on coumadin, CHF, CVA, AAA, pacemaker. Diabetes, dysphagia, peripheral neuropathy, gout. PREVIOUS FUNCTIONAL STATUS/SOCIAL/FAMILY SUPPORTS:: Recently placed at [facility] from the [facility]. Resides in [place] with his , who per daughter's report is also currently struggling with increased medical issues. DaughterYnes resides in [place], [place] and is attempting to support parents remotely. CURRENT FUNCTIONAL STATUS:: Readying for transfer. ADVANCE DIRECTIVES:: None on file, no HIPPA, NOK listed at [facility]; Daughter who resides in [place]. Has patient been provided with info about the portal/API?: No Did the patient sign up for the portal?: No CODE STATUS:: DNR/DNI INSURANCE COVERAGE / FINANCIAL ISSUES:: [employer]. Medicare CURRENT HOME/COMMUNITY SERVICES/EQUIPMENT:: SN[facility]. PRIMARY CARE PHYSICIAN:: Ronaldo Melgar DO. [place], [place]. POTENTIAL DISCHARGE NEEDS:: Saba Rees: [place], [place] P#[phone] requests MD updates as disposition plan develops. PATIENT/FAMILY EDUCATION NEEDS:: Review of instructions, transfer considerations. ANTICIPATED BARRIERS TO DISCHARGE:: [facility]: P#[phone], CNO to contact Nadya Newman NP re: transfer. ED attempted transfer last night, though no beds were available at that time. TRANSPORTATION:: Via EMS. PLAN:: Taye would like to be transferred to the [facility]; he was discharged from there a few days ago. He presents from [facility] in CHF and Pulmonary hypertension. CM continues to follow and support transfer coordination.
[2020-09-08 12:57] VITALS: BP 107/64; PULSE 72; RESP 18; TEMP 37; O2SAT 95
--- NOTE | 2020-09-08 13:05 | DSE_ITS ---
DS: Diagnosis Discharge Diagnosis (1) Pneumonia: Start date: 09/08/20 Start time: 13:07 Status: Acute Asessment and Plan: After speaking with [facility] hospitalist that he is well known to, this is likely aspiration pneumonia. They have agreed to take him for transfer as he is established with them. No cough afebrile, no leukocytosis however it is trending upward CT chest with ground glass opacities and pleural effusion Procal 0.2 Blood cultures done will have them faxed to [facility] when available. [phone] Initiated zosyn and vanco for both asp pneumo and HCAP considering he was in the [facility] and transferred to [facility] prior to admission. Will transfer to [facility] (2) Altered mental status: Start date: 09/08/20 Start time: 13:05 Status: Resolved Asessment and Plan: Demented gentleman at baseline mentation. AAOx3 at times. Other times confused (3) Acute kidney injury superimposed on chronic kidney disease: Start date: 09/08/20 Start time: 13:06 Status: Acute Asessment and Plan: Creatinine of 2.81 down [facility] 2.99 [facility] this is above baseline for patient. (4) Acute CHF: Start date: 09/08/20 Start time: 13:06 Status: Acute Asessment and Plan: Decompensated acute on chronic. BNP 62399. Given IV lasix, and started on lasix drip of 5 mg /hr. Watts inserted. (5) Hypotension: Start date: 09/08/20 Start time: 13:10 Status: Resolved Asessment and Plan: Soft but normotensive. monitor (6) Hypoxemia: Start date: 09/08/20 Start time: 13:11 Status: Resolved Asessment and Plan: Improved on RA at 95%. In the setting of pneumonia (7) Diabetes mellitus type 2, controlled: Start date: 09/08/20 Start time: 13:11 Status: Acute Asessment and Plan: Continue to monitor bgl above case discussed with Dr. Real who is in agreement. Discharge Plan Disposition Patient Disposition: [facility] Condition: Stable Discharge Details Reason For Visit: PNEUMONIA,ACUTE CHF,DEHYDRATION,MARY ON CKD, AMS Admit Date/Time: 09/07/20 18:26 Admit Provider: Bimal Sheriff Attending Provider: Bimal Sheriff Primary Care Provider: Ronaldo Melgar Hospital Course Hospital Course: This is an 84 yo male that presented from [facility]. He had been transferred there 2 days prior to this admission after being discharged from the [facility] for CHF exacerbation. He has a h/o DM2, HTN, CKD, PAF on coumadin, CHF, CVA, AAA, pacemaker. He was noted at the facility to have a RA oxygen saturation in the 80's and was noted to be confused. His daughter was contacted by the ED staff and she endorsed that he had developed SOA, admitted to the [facility], then [facility]c'd to [facility]. He is not chronically hypoxic on supplemental O2. No CP, palpitations, F/C/cough reported. In the ED his RA oxygen saturation was 100%. [place] [address]. WBC count normal. Lactate mildly elevated at 2.0. Creatinine 2.99 / reportedly 2.5 during recent hospitalization. Hgb 9.5 reportedly in the low 9's during recent hospitalization. CT head and C-spine negative. CT chest with questionable patchy ground glass opacities of both lungs; edema vs infectious process. He was given a dose of Zosyn and Vancomycin. Procalcitonin was still pending upon admission. Given his acute on chronic MARY, modest fluids given. He was admitted to / for further management. Creatinine mildly improved this am. Started on lasix drip with catheter placement. He did have an elevated procalcitonin, afebrile without leukocytosis. Given CT and procal results will treat for aspiration pneumonia as well as CHF. He is requesting transfer to [facility]. Spoke with Dr. Butler from [facility] who agrees to transfer. He will be transferred with lasix drip. Home Meds and New Rx's Prescriptions: Continued bumetanide 2 mg Tablet 2 mg PO BID RF: 0 tamsulosin 0.4 mg Capsule 0.8 mg PO QHS RF: 0 bisacodyl [Dulcolax (bisacodyl)] 10 mg Suppository 10 mg MI DAILY PRNRF: 0 warfarin 2 mg Tablet 1 mg PO DIRECTED RF: 0 warfarin 2 mg Tablet 2 mg PO DIRECTED RF: 0 metoprolol tartrate 50 mg Tablet 50 mg PO DAILY RF: 0 lactase 3,000 unit Tablet 3,000 unit PO TID RF: 0 docusate sodium [Colace] 100 mg Capsule 100 mg PO DAILY RF: 0 gabapentin 300 mg Capsule 300 mg PO DAILY RF: 0 omeprazole 20 mg Capsule,Delayed Release(Dr/Ec) 20 mg PO DAILY RF: 0 aspirin 81 mg Tablet 81 mg PO DAILY RF: 0 pravastatin 20 mg Tablet 20 mg PO QHS RF: 0 omega-3 fatty acids-vitamin E 1,000 mg Capsule 1 cap PO BID RF: 0 febuxostat 80 mg Tablet 80 mg PO DAILY RF: 0 Diclo Gel 1 % Kit 4 g TOPICAL QID PRNRF: 0 No Action acetaminophen 325 mg Tablet 325 mg PO TID PRNRF: 0 trazodone 50 mg Tablet 50 mg PO QHS RF: 0 benzonatate 100 mg Capsule 100 mg PO BID PRNRF: 0 Discharge Instructions Additional Instructions: Transfer to [facility] for further medical management Activity:: Activity as Tolerated Equipment/Supplies:: No Equipment Needed Diet:: Low Sodium Discharge Orders Discharge Orders: Discharge Order (Routine); Ordered 09/08/20 Ordered By: Nadya Newman DS: Summary Status at Discharge Functional status at discharge: uses cane/walker Overall status at discharge: patient is not back to baseline Mental Status: other Speech and Movement: speech and movement normal Mood: congruent mood and other Affect: normal affect Exam Const General: cooperative and no acute distress Nutritional Appearance: overweight Orientation: alert and oriented to person HENMT Head: normal to inspection and atraumatic Eyes Sclera: sclerae normal Pupils: PERRL Resp Effort & Inspection: normal respiratory effort Auscultation: clear to auscultation bilaterally Cardio Rate: regular rate Rhythm: regular rhythm Heart Sounds: S1 normal and S2 normal GI Palpation: soft Auscultation: normal bowel sounds Neuro General: patient alert, patient awake and patient oriented x3 Psych Mental Status: other Speech and Movement: speech and movement normal Mood: congruent mood and other Affect: normal affect DS: Data Vitals/I&O Vitals and I&O: Vital Signs Temperature 37.0 C 09/08/20 12:57 Temperature Source Tympanic 09/08/20 12:57 Pulse 72 09/08/20 12:57 Pulse Rhythm Irregular 09/08/20 02:09 Pulse 76 09/07/20 19:31 Respiratory Rate 18 09/08/20 12:57 Respiratory Effort Non-Labored 09/08/20 02:09 Respiratory Depth Deep 09/08/20 02:09 Respiratory Pattern Normal 09/08/20 02:09 Blood Pressure 107/64 09/08/20 12:57 Blood Pressure Mean 76 09/07/20 19:30 Blood Pressure Position Supine 09/07/20 15:01 Pulse Oximetry 95 09/08/20 12:57 Oxygen Delivery Method Room Air 09/08/20 12:57 Oxygen Flow Rate 0 09/08/20 12:57 Pain Level 0 09/08/20 12:57 Intake & Output 09/07/20 09/08/20 09/08/20 23:59 11:59 23:59 Intake Total 50 / 50 Balance 50 / 50 Weight 87.1 kg Intake: IV 50 / 50 Other: Urine Color Yellow Urine Appearance Clear Comment diaper fully soaked Voiding Methods Diaper Diaper Incontinent Incontinent Data Completed and Pending Completed studies during hospitalization [Text1]: Exam(s) a CT:CT chest wo EXAM: CT CHEST WO CLINICAL HISTORY: shortness of breath, hypoxia, r/o chf/pneumonia TECHNIQUE: COMPARISON: No exams were available for comparison FINDINGS: CT examination of the chest was performed without contrast administration. Images obtained through the upper abdomen show minimal fluid attenuation adjacent to the spleen which is nonspecific. Visualized liver appears intact. The heart is enlarged. There is a transvenous cardiac pacemaker. 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 No gross mediastinal or hilar adenopathy. There is a small right pleural effusion. Motion obscures pulmonary detail to some degree. There is a question of faint bilateral perihilar infiltrates, ground-glass, possible mild CHF, infectious process not excluded. There is a 5 millimeter in diameter right middle lobe pulmonary nodule, follow- up chest CT recommended in 6 months. IMPRESSION: Cardiomegaly, question mild CHF, mild ground-glass infectious process not excluded. FINDINGS: CT examination of the cervical spine was performed without contrast administration. There is no evidence of acute cervical spine fracture or dislocation. There are marked degenerative changes of the cervical spine with prominent hypertrophic changes of the facet joints and endplates, there is disc space narrowing particularly at C6-7. Tracheolaryngeal structures appear intact. No cervical mass or adenopathy. Noncontrast cranial CT was performed. There is marked generalized cerebral atrophy. There are patchy areas of decreased attenuation in periventricular white matter consistent with microvascular ischemic changes. There are apparent old infarcts of left cerebellar hemisphere and right and left occipital lobes. No evidence of acute intracranial hemorrhage, mass effect, or midline shift. No calvarial fracture. The orbital and temporal bone structures appear intact. IMPRESSION: No evidence of acute cervical spine injury. No evidence of acute intracranial injury. EXAM: XR PELVIS AP CLINICAL HISTORY: s/p possible fall, r/o acute fracture TECHNIQUE: COMPARISON: No exams were available for comparison FINDINGS: Two views were obtained. A portions of the pelvis are obscured by barium in the colon. The radiographic technique does not adequately demonstrate the proximal femurs. No definite fracture seen. IMPRESSION: No definite fracture identified but the films are suboptimal for evaluating for fracture. If there is a high clinical suspicion of fracture additional radiographs or CT would be recommended Labs on day of discharge: Labs from last 24 hours 09/08/20 09/08/20 09/08/20 07:18 07:18 07:18 WBC 7.40 D RBC 3.66 L Hgb 9.8 L Hct 34.1 L MCV 93.2 MCH 26.8 L MCHC 28.7 L RDW 20.1 H Plt Count 99 L MPV 11.4 H Immature Gran % 0.5 Neutrophils % 84.1 Lymphocytes % 4.9 Monocytes % 10.1 Eosinophils % 0.1 Basophils % 0.3 Nucleated RBC % 0 Absolute Neutrophils 6.22 Absolute Lymphocytes 0.36 L Absolute Monocytes 0.75 Absolute Eosinophils 0.01 Absolute Basophils 0.02 RBC Morphology See below Polychromasia Present Anisocytosis 2+ PT 23.1 H INR 2.3 H APTT VBG Lactate 2.5 H* Sodium Potassium Chloride Carbon Dioxide Anion Gap BUN Creatinine Estimated GFR/1.73 m2 Glucose Calcium Magnesium Total Bilirubin AST ALT Alkaline Phosphatase Troponin I NT-Pro-B Natriuret Pep Total Protein Albumin Procalcitonin Urine Color Urine Clarity Urine pH Ur Specific [place] Urine Protein Urine Ketones Urine Blood Urine Nitrite Urine Bilirubin Urine Urobilinogen Ur Leukocyte Esterase Urine Glucose COVID-19 PCR Nasopharyn COVID-19 PCR SARS-CoV-2 Source SARS-CoV-2 (PCR) Ref Test Perform Site 09/08/20 09/07/20 09/07/20 07:18 19:37 15:22 WBC RBC Hgb Hct MCV MCH MCHC RDW Plt Count MPV Immature Gran % Neutrophils % Lymphocytes % Monocytes % Eosinophils % Basophils % Nucleated RBC % Absolute Neutrophils Absolute Lymphocytes Absolute Monocytes Absolute Eosinophils Absolute Basophils RBC Morphology Polychromasia Anisocytosis PT INR APTT VBG Lactate Sodium 139 Potassium 4.3 Chloride 100 Carbon Dioxide 33.8 H Anion Gap 5.2 BUN 64 H Creatinine 2.81 H Estimated GFR/1.73 m2 21.71 Glucose 135 H Calcium 8.9 Magnesium Total Bilirubin AST ALT Alkaline Phosphatase Troponin I NT-Pro-B Natriuret Pep Total Protein Albumin Procalcitonin Urine Color Urine Clarity Urine pH Ur Specific [place] Urine Protein Urine Ketones Urine Blood Urine Nitrite Urine Bilirubin Urine Urobilinogen Ur Leukocyte Esterase Urine Glucose COVID-19 PCR Cancelled Cancelled Nasopharyn COVID-19 PCR Cancelled Cancelled SARS-CoV-2 Source Pending SARS-CoV-2 (PCR) Pending Ref Test Perform Site Cancelled Cancelled 09/07/20 09/07/20 09/07/20 15:08 15:03 15:03 WBC RBC Hgb Hct MCV MCH MCHC RDW Plt Count MPV Immature Gran % Neutrophils % Lymphocytes % Monocytes % Eosinophils % Basophils % Nucleated RBC % Absolute Neutrophils Absolute Lymphocytes Absolute Monocytes Absolute Eosinophils Absolute Basophils RBC Morphology Polychromasia Anisocytosis PT INR APTT VBG Lactate Sodium Potassium Chloride Carbon Dioxide Anion Gap BUN Creatinine Estimated GFR/1.73 m2 Glucose Calcium Magnesium Total Bilirubin AST ALT Alkaline Phosphatase Troponin I NT-Pro-B Natriuret Pep 05612 H Total Protein Albumin Procalcitonin 0.2 Urine Color Yellow Urine Clarity Clear Urine pH 7.0 Ur Specific [place] 1.020 Urine Protein Negative Urine Ketones Negative Urine Blood Negative Urine Nitrite Negative Urine Bilirubin Negative Urine Urobilinogen 1.0 H Ur Leukocyte Esterase Negative Urine Glucose Negative COVID-19 PCR Nasopharyn COVID-19 PCR SARS-CoV-2 Source SARS-CoV-2 (PCR) Ref Test Perform Site 09/07/20 09/07/20 09/07/20 15:03 15:03 15:02 WBC 5.55 RBC 3.47 L Hgb 9.5 L Hct 32.5 L MCV 93.7 MCH 27.4 MCHC 29.2 L RDW 20.3 H Plt Count 119 L MPV 11.3 H Immature Gran % 0.5 Neutrophils % 73.5 Lymphocytes % 13.0 Monocytes % 12.4 Eosinophils % 0.2 Basophils % 0.4 Nucleated RBC % 0 Absolute Neutrophils 4.08 Absolute Lymphocytes 0.72 L Absolute Monocytes 0.69 Absolute Eosinophils 0.01 Absolute Basophils 0.02 RBC Morphology See below Polychromasia Anisocytosis 2+ PT 24.7 H INR 2.5 H APTT 38.4 H VBG Lactate Sodium 144 Potassium 4.0 Chloride 101 Carbon Dioxide 38.8 H Anion Gap 4.2 BUN 64 H Creatinine 2.99 H Estimated GFR/1.73 m2 20.21 Glucose 114 H Calcium 8.9 Magnesium 2.1 Total Bilirubin 1.8 H AST 32 ALT 17 Alkaline Phosphatase 85 Troponin I 0.05 NT-Pro-B Natriuret Pep Total Protein 7.6 Albumin 3.2 L Procalcitonin Urine Color Urine Clarity Urine pH Ur Specific [place] Urine Protein Urine Ketones Urine Blood Urine Nitrite Urine Bilirubin Urine Urobilinogen Ur Leukocyte Esterase Urine Glucose COVID-19 PCR Nasopharyn COVID-19 PCR SARS-CoV-2 Source SARS-CoV-2 (PCR) Ref Test Perform Site 09/07/20 15:01 WBC RBC Hgb Hct MCV MCH MCHC RDW Plt Count MPV Immature Gran % Neutrophils % Lymphocytes % Monocytes % Eosinophils % Basophils % Nucleated RBC % Absolute Neutrophils Absolute Lymphocytes Absolute Monocytes Absolute Eosinophils Absolute Basophils RBC Morphology Polychromasia Anisocytosis PT INR APTT VBG Lactate 2.0 H Sodium Potassium Chloride Carbon Dioxide Anion Gap BUN Creatinine Estimated GFR/1.73 m2 Glucose Calcium Magnesium Total Bilirubin AST ALT Alkaline Phosphatase Troponin I NT-Pro-B Natriuret Pep Total Protein Albumin Procalcitonin Urine Color Urine Clarity Urine pH Ur Specific [place] Urine Protein Urine Ketones Urine Blood Urine Nitrite Urine Bilirubin Urine Urobilinogen Ur Leukocyte Esterase Urine Glucose COVID-19 PCR Nasopharyn COVID-19 PCR SARS-CoV-2 Source SARS-CoV-2 (PCR) Ref Test Perform Site 09/08/20 12:28 Blood Blood Culture - Pending 09/08/20 12:28 Blood Blood Culture - Pending 09/07/20 19:30 Nose MRSA Screen - Pending Preliminary micro results at discharge 09/08/20 12:28 Blood Culture - Pending Blood 09/08/20 12:28 Blood Culture - Pending Blood 09/07/20 19:30 MRSA Screen - Pending Nose [facility] Medical History AAA (abdominal aortic aneurysm) without rupture CHF (congestive heart failure) Chronic kidney disease CVA (cerebral vascular accident) Diabetes Dysphagia Gout HTN (hypertension) Hx of hyperlipidemia Paroxysmal atrial fibrillation Peripheral neuropathy Social History Smoking/Tobacco Use Status: Unknown Smoking risk assessment performed?: Yes Details: Unable to assess patient confused, current resident of [facility]. Additional Social history: Unable to assess patient confused, current resident of [facility].
--- NOTE | 2020-09-08 13:10 | NUR.NOTE ---
wound care consult deferred due [facility]. Nursing Note:
--- NOTE | 2020-09-08 14:07 | NUR.NOTE ---
called report to RN at [facility]. All Questions answered. Nursing Note:
--- NOTE | 2020-09-09 08:59 | PT.INNT ---
Date of service: 09/09/20 Time of Service: 08:59 PT Notes Visit Reasons: PNEUMONIA,ACUTE CHF,DEHYDRATION,MARY ON CKD, AMS Patient was discharged on 09/08/2020. No PT services provided during this hospital stay. Thank you for the opportunity to participate in the care of this patient. Zamzam Fernández PT, DPT, CLT [facility] [place], [place]
[2020-09-10 13:02] LABS: SARS-CoV-2 RNA Not Detected (NotDetected); SARS-CoV-2 RNA Source Nasal/Nares
== END 2020-09-08 16:52 | disposition short-term general hospital (02) | DRG 177 ==
LOC: ER 19:30 → MS 19:58
PROVIDERS: Admitting Provider Family Medicine; Emergency Provider Physician Assistant; PCP Family Medicine; Visit Provider Family Medicine
DX: J69.0 Pneumonitis due to inhalation of food and vomit (principal); I50.23 Acute on chronic systolic (congestive) heart failure; N17.9 Acute kidney failure, unspecified; I13.0 Hypertensive heart and chronic kidney disease with heart failure and stage 1 through stage 4 chronic kidney disease, or unspecified chronic kidney disease; R09.02 Hypoxemia; I95.9 Hypotension, unspecified; E11.22 Type 2 diabetes mellitus with diabetic chronic kidney disease; I48.0 Paroxysmal atrial fibrillation; Z79.01 Long term (current) use of anticoagulants; Z86.73 Personal history of transient ischemic attack (TIA), and cerebral infarction without residual deficits; Z95.0 Presence of cardiac pacemaker; R13.10 Dysphagia, unspecified; M10.9 Gout, unspecified; E11.42 Type 2 diabetes mellitus with diabetic polyneuropathy; F03.90 Unspecified dementia, unspecified severity, without behavioral disturbance, psychotic disturbance, mood disturbance, and anxiety; I71.4 Abdominal aortic aneurysm, without rupture
CPT/HCPCS: 36415; 71250; 80048; 80053; 84145; 87040; 87081; 93005; 96361; 96365; 99222; 99239; 99285; U0003; 70450; 72125; 72170; 81003; 83605; 83735; 83880; 84484; 85025; 85610; 85730; 93010; 99235; J1940; J2543